=== PATIENT | male | born 1960 | race Caucasian/White ===

== ENCOUNTER 2019-05-01 07:35 | Day surgery (SDC) | payer OTHER ==
[~2019-05-01] VITALS: Ht 162.6 cm; Wt 91.0 kg
[~2019-05-01 07:35] MED LIST: SODIUM CHLORIDE 0.9% 1,000 ML IV ONE
[2019-05-01] MEDS ORDERED: ALBUTEROL SULFATE 2.5 MG/0.5 ML NEB SOLUTION NEB ONE (07:36)
[2019-05-01] MEDS ORDERED: BENZOCAINE 20% 50 MCG/SPRAY 57 GM TP ONE (07:36)
[2019-05-01] MEDS ORDERED: LIDOCAINE 4% 50 ML SOLUTION TP ONE (07:36)
[2019-05-01] MEDS ORDERED: LIDOCAINE 2% 30 ML JELLY TP ONE (07:36)
[2019-05-01] MEDS ORDERED: MIDAZOLAM HCL 2 MG/2 ML VIAL ONE (07:51)
[2019-05-01] MEDS ORDERED: FentaNYL CITRATE-PF 100 MCG/2 ML VIAL ONE (07:51)
[2019-05-01] MEDS ORDERED: TRAZ-252 PO (08:27)
[2019-05-01] MEDS ORDERED: LOSA50TA64 PO (08:27)
[2019-05-01] MEDS ORDERED: POTA25TA7 PO (08:27)
[2019-05-01] MEDS ORDERED: BACL10TA PO (08:27)
[2019-05-01] MEDS ORDERED: FLUT16H NASAL (08:27)
[2019-05-01] MEDS ORDERED: TAMS-1 PO (08:27)
[2019-05-01] MEDS ORDERED: COMBISP IH (08:27)
[2019-05-01] MEDS ORDERED: ATOR20TA86 PO (08:27)
[2019-05-01] MEDS ORDERED: OMEP20 PO (08:27)
[2019-05-01] MEDS ORDERED: HYDR-4455 PO (08:27)
[2019-05-01] MEDS ORDERED: ESCI10TA PO (08:27)
[2019-05-01] MEDS ORDERED: DICY20 PO (08:27)
[2019-05-01] MEDS ORDERED: FURO20 PO (08:27)
[2019-05-01] MEDS ORDERED: MOME13HF IH (08:27)
[2019-05-01] MEDS ORDERED: MONT10TA21 PO (08:27)
[2019-05-01] MEDS ORDERED: METO-296 PO (08:27)
[2019-05-01] MEDS ORDERED: METO50 PO (08:27)
[2019-05-01] MEDS ORDERED: AMLO10TA7 PO (08:27)
[2019-05-01] MEDS ORDERED: MethylPREDNISolone SOD SUCC 125 MG/2 ML VIAL IVP ONE (09:00)
[2019-05-01] MEDS ORDERED: MethylPREDNISolone SOD SUCC 125 MG/2 ML VIAL ONE (09:26)
[2019-05-01] MEDS ORDERED: OXYGEN THERAPY IH SCH (20:00)
== END 2019-05-01 11:10 | disposition home or self-care (01) ==
LOC: SURGERY 07:35
PROVIDERS: ATTEND Internal Medicine Critical Care Medicine
DX: R05 Cough (principal); J34.89 Other specified disorders of nose and nasal sinuses; J38.4 Edema of larynx; B37.0 Candidal stomatitis; J98.8 Other specified respiratory disorders; I10 Essential (primary) hypertension; E78.5 Hyperlipidemia, unspecified; J44.9 Chronic obstructive pulmonary disease, unspecified; M19.90 Unspecified osteoarthritis, unspecified site; Z79.899 Other long term (current) drug therapy
CPT/HCPCS: 31623; 31624; 71045; 87015; 87070; 87101; 87205; 87206; 87220; 88108; 88312; J2250; J2930; J3010; J7030